=== PATIENT | female | born 1970 | race Caucasian/White ===

== ENCOUNTER → 2021-03-22 | Outpatient (CLI) | payer BC ==
[2021-03-22 19:17] LABS: Basophils # (A) 0.08 X 10*3/uL (0.00-0.10); Basophils % (A) 0.8 %; Eosinophils # (A) 0.22 X 10*3/uL (0.04-0.35); Eosinophils % (A) 2.3 %; HGB 13.5 g/dL (12.0-15.0); Lymphocytes # (A) 2.53 X 10*3/uL (0.90-5.00); Lymphocytes % (A) 26.1 %; MCH 29.2 pg (27.0-32.0); MCHC 30.7 g/dL (32.0-37.0); Mean Platelet Volume 9.9 fL (9.5-12.2); Monocytes # (A) 0.76 X 10*3/uL (0.20-1.00); Monocytes % (A) 7.8 %; Neutrophils # (A) 6.06 X 10*3/uL (1.80-7.70); Neutrophils % (A) 62.6 %; Platelet Count 320 X 10*3/uL (140-440); RBC 4.63 X 10*6/uL (4.10-5.20); RDW 13.9 % (11.5-14.5); WBC 9.69 X 10*3/uL (4.50-10.00)
[2021-03-22 19:19] LABS: Anion Gap 10.1 mmol/L (10.00-18.00); Carbon Dioxide 22.9 mmol/L (20.0-27.5)
== END | disposition home or self-care (01) ==
LOC: LABWHC1 10:23
PROVIDERS: ATTEND Orthopaedic Surgery
DX: Z01.812 Encounter for preprocedural laboratory examination (principal); G56.03 Carpal tunnel syndrome, bilateral upper limbs
CPT/HCPCS: 36415; 80051; 85025

== ENCOUNTER 2021-04-12 10:34 | Day surgery (SDC) | payer BC, OTHER ==
[2021-04-07 18:24] VITALS: BMI 19.5
--- NOTE | 2021-04-11 19:35 | HP ---
HISTORY AND PHYSICAL REASON FOR ADMISSION: Surgery scheduled for 04/12/2021 HISTORY OF PRESENT ILLNESS: Jocy White is a 51-year-old patient seen with symptomatic left carpal tunnel syndrome. We discussed options for treatment. She elected to proceed with decompression left median nerve. Consent obtained. PAST MEDICAL HISTORY: Noncontributory. PAST SURGICAL HISTORY: Noncontributory. DAILY MEDICATIONS: None. ALLERGIES: None reported. SOCIAL HISTORY: She does smoke cigarettes. PHYSICAL EXAMINATION: Physical evaluation of the left hand reveals positive carpal compression, carpal Tinel's causing numbness, tingling throughout the median nerve distribution. No tenderness along the A1 margot areas. There is good perfusion distally. Good radial pulse present. RADIOGRAPHS: Reveal some mild osteoarthritic changes of the left wrist. EMG revealed severe bilateral carpal tunnel syndrome. IMPRESSION: Left carpal tunnel syndrome. PLAN: Decompression left median nerve. Surgery scheduled 04/12/2021. MMODL / IJN: [id number] /
[~2021-04-12 10:34] MED LIST: DEXAMETHASONE SOD PHOSPHATE 4 MG/ML 1 ML VIAL IV ONE; HYDROmorphone 0.5 MG/0.5 ML SYRINGE IVP PRN; LACTATED RINGERS 1,000 ML IV SCH; LIDOCAINE 1% (10MG/ML) FOR IV START INTRADERMA PRN; MIDAZOLAM 2 MG/2 ML VIAL IV PRN; ONDANSETRON 4 MG/2 ML VIAL IVP ONE
[2021-04-12] MEDS ORDERED: BUPIVACAINE (PF) 0.25% 30 ML VIAL SQ ONE ×2 (11:59→12:18)
[2021-04-12] MEDS ORDERED: MIDAZOLAM 2 MG/2 ML VIAL ONE (12:05)
[2021-04-12] MEDS ORDERED: fentaNYL (PF) 50 MCG/ML 2 ML AMP ONE (12:05)
[2021-04-12] MEDS ORDERED: PROPOFOL 10 MG/ML 20 ML VIAL IV ONE (12:05)
--- NOTE | 2021-04-12 12:34 | P.OP ---
Date of Procedure: 04/12/21 Preoperative Diagnosis: Left carpal tunnel syndrome Postoperative Diagnosis: Left carpal tunnel syndrome Procedure(s) Performed: Decompression left median nerve Anesthesia: MAC, local Surgeon: Ruddy Tsang Estimated Blood Loss (ml): 0 Pathology: none sent Condition: stable Disposition: PACU Indications for Procedure: 51-year-old patient seen with symptomatic left carpal tunnel syndrome. After treatment options were discussed with her, she elected to proceed with decompr ession left median nerve. Operative Findings: See description of procedure Description of Procedure: Patient was taken to the operative suite. Patient received preoperative IV antibiotics. Well-padded tourniquet placed proximal left upper extremity. Left upper extremity prepped and draped in the normal sterile orthopedic fashion. The proposed incision site was infiltrated with 8 mL quarter percent plain Marcaine. When sufficient local analgesia was noted the extremity was elevated and tourniquet insufflated to 250. I made an incision beginning at the distal volar wrist crease extending distally approximately 3 cm in line with the fourth metacarpal sharply through skin. I dissected down through the palmar fascia to the transverse carpal ligament. I made a small incision through the central portion of transcarpal ligament. I now completed the release proximally and distally with blunt Metzenbaums. There was complete release of the transverse carpal ligament with good decompression of the nerve. There was good hemostasis. The wound was irrigated. Skin margins were proximal nylon suture. Applied sterile dressings followed by loose webril and Coban. The tourniquet was released with immediate capillary refill noted. The patient was now awakened and transferred to recovery in stable condition.
[2021-04-12 12:37] VITALS: TEMP 97.7
[2021-04-12 13:01] VITALS: RESP 16
[2021-04-12 13:24] VITALS: BP 126/66; PULSE 79
== END 2021-04-12 13:40 | disposition home or self-care (01) ==
LOC: OR 10:34
PROVIDERS: ATTEND Orthopaedic Surgery
DX: G56.02 Carpal tunnel syndrome, left upper limb (principal); F17.210 Nicotine dependence, cigarettes, uncomplicated; Z88.5 Allergy status to narcotic agent; K58.9 Irritable bowel syndrome, unspecified; Z90.710 Acquired absence of both cervix and uterus; Z97.2 Presence of dental prosthetic device (complete) (partial)
CPT/HCPCS: 64721; J2250; J1100; J2405; J0690; J3010; J2704

== ENCOUNTER → 2021-09-28 | Outpatient (CLI) | payer BC ==
--- NOTE | 2021-09-28 08:18 | CT ---
EXAMINATION TYPE: CT brain w con DATE OF EXAM: 09/28/2021 COMPARISON: None INDICATION: syncope, collapse DLP: 1153 mGycm, Automated exposure control for dose reduction was used. CONTRAST: 70 mL Isovue-300 CT of the brain is performed utilizing 3 mm thick sections through the posterior fossa and 3 mm thick sections through the remaining calvarium. Study is performed within 24 hours of arrival to the hosp [facility]. No abnormal hyperdensity is present to suggest an acute intracranial hemorrhage. No mass lesion is evident. No acute infarcts are evident. Extremely subtle subcortical hypodensity may be within the left back tender paper machine ior frontal lobe. Tiny subcortical infarct is not excluded. Consider additional workup with MRI. Ventricles and sulci are appropriate for the patient age. Paranasal sinuses and mastoid air cells within the [id number] are clear. No suspicious enhancement is evident. IMPRESSIONS: 1. Tiny area of subcortical hypodensity could be subacute or chronic ischemic change along other et iologies. Consider MRI brain for additional evaluation.
--- NOTE | 2021-09-28 17:42 | EEG ---
ELECTROENCEPHALOGRAM REPORT DATE OF SERVICE: 09/28/2021 PREAMBLE: This is a 51-year-old female who had a syncopal spell. The patient currently does not take any medications. EEG FINDINGS: This is a 21-channel digital EEG recorded with video component, utilizing 10/20 international system with referential and bipolar montages. The recording is technically slightly limited because of presence of a 60 hertz cycle interference during most of the study, for which filter had to be used. The background consists of moderately well-developed and -regulated mixed frequencies of low amplitude theta, intermixed with some fast frequency beta activity seen in bihemispheric region. The background is reactive to eye opening and closing. Photic driving response was not seen. Patient was noted to be in stage II sleep in later part of the study with presence of sleep spindles and vertex waves. No focal or generalized epileptiform activity was seen. EKG channel showed no arrhythmia. IMPRESSION: This is an abnormal EEG due to mild background slowing, with intermixed fast frequency activity. This is suggestive of generalized cerebral dysfunction as can be seen with encephalopathy or medication effect. No epileptiform activity was seen during this study. MMODL / IJN: [id number] /
== END | disposition home or self-care (01) ==
LOC: RADCTMAIN 07:36
PROVIDERS: ATTEND Family Medicine
DX: R55 Syncope and collapse (principal)
CPT/HCPCS: 95819; 70460; Q9967

== ENCOUNTER → 2021-11-01 | Day surgery (SDC) | payer BC ==
[2021-10-31 09:58] VITALS: BMI 18.8
[~2021-11-01] MED LIST changes: -DEXAMETHASONE SOD PHOSPHATE 4 MG/ML 1 ML VIAL IV ONE; -HYDROmorphone 0.5 MG/0.5 ML SYRINGE IVP PRN; +LACTATED RINGERS 1,000 ML IV ONE; +LIDOCAINE 2% INJ 20 MG/ML (2 ML VIAL) ONE; -MIDAZOLAM 2 MG/2 ML VIAL IV PRN; +MIDAZOLAM 2 MG/2 ML VIAL ONE; -ONDANSETRON 4 MG/2 ML VIAL IVP ONE; +PROPOFOL 10 MG/ML 20 ML VIAL IV ONE; +fentaNYL (PF) 50 MCG/ML 2 ML AMP ONE
--- NOTE | 2021-11-01 08:02 | P.GSHP ---
History of Present Illness H&P Date: 11/01/21 CHIEF COMPLAINT: Colon screen HISTORY OF PRESENT ILLNESS: The patient is a 51-year-old female who presents for colon screen. Lower endoscopy was offered for further evaluation and management. PAST MEDICAL HISTORY: Please see list. PAST SURGICAL HISTORY: Please see list. MEDICATIONS: Please see list. ALLERGIES: Please see list. SOCIAL HISTORY: No illicit drug use FAMILY HISTORY: No reports of Crohn disease or ulcerative colitis. REVIEW OF ORGAN SYSTEMS: CONSTITUTIONAL: No reports of fevers or chills. PHYSICAL EXAM: VITAL SIGNS: Stable GENERAL: Well-developed pleasant in no acute distress. HEENT: No scleral icterus. Extraocular movements grossly intact. Moist buccal mucosa. NECK: Supple without lymphadenopathy. CHEST: Unlabored respirations. Equal bilateral excursions. CARDIOVASCULAR: Regular rate and rhythm. Distal 2+ pulses. ABDOMEN: Soft, nontender, nondistended. MUSCULOSKELETAL: No clubbing, cyanosis, or edema. ASSESSMENT: 1. Colon screen. PLAN: 1. Recommend proceeding with a lower endoscopy Past Medical History Past Medical History: Hearing Disorder / Deafness, Musculoskeletal Disorder Additional Past Medical History / Comment(s): Recent unexplained weight loss. Recent episode of "blacking out, seeing table worker packager for it". IBS. Back pain. Sprained right shoulder. Osteoporsis. Bilateral hearing aid use. History of Any Multi-Drug Resistant Organisms: None Reported Past Surgical History: Section, Hysterectomy, Orthopedic Surgery Additional Past Surgical History / Comment(s): Left carpal tunnel surgery. Past Anesthesia/Blood Transfusion Reactions: No Reported Reaction Past Psychological History: Depression Smoking Status: Current every day smoker Past Alcohol Use History: None Reported Additional Past Alcohol Use History / Comment(s): Smokes 1 ppd, since age 25. Past Drug Use History: Marijuana Additional Drug Use History / Comment(s): Daily Marijuana use. Aware no use 24 hrs prior to procedure. - Past Family History Mother Family Medical History: Cancer Medications and Allergies Home Medications Medication Instructions Recorded Confirmed Type Naproxen Sodium [Aleve] 220 mg PO DAILY PRN 10/31/21 10/31/21 History Allergies Allergy/AdvReac Type Severity Reaction Status Date / Time codeine AdvReac Nausea & Verified 10/31/21 09:43 Vomiting
[2021-11-01 09:16] VITALS: TEMP 97.3
[2021-11-01 10:23] VITALS: RESP 20
--- NOTE | 2021-11-01 10:25 | P.PCN ---
Date of Procedure: 11/01/21 Description of Procedure: PREOPERATIVE DIAGNOSIS: Colonoscopy screening. POSTOPERATIVE DIAGNOSIS: Sigmoid diverticulosis with stricture OPERATION: Colonoscopy to the sigmoid colon SURGEON: Carline Williamson MD. ANESTHESIA: MAC. INDICATIONS: The patient is a 51-year-old female who presents for colonoscopy screening. Benefits and risks were described and informed consent was obtained. DESCRIPTION OF PROCEDURE: The patient had undergone Sutab prep. The patient had been brought into the operating room and laid in the left lateral decubitus position. After adequate intravenous sedation, the rectum was examined with 2% lidocaine jelly. External hemorrhoids were encountered. The rectal tone was within normal limits. No lesions were palpated in the rectal vault. An Olympus colonoscope was advanced to the sigmoid colon. The prep was excellent. Scattered diverticulosis with stricture at 40 cm from the anal verge was identified. The scope was exchanged to a pediatric colonoscope with persistent stricture found 40 cm from the anal verge. No colonic polyps were found to the extent of the sigmoid colon. No evidence of focal colitis was found to the extent of the sigmoid colon. Retroflexion of the scope demonstrated grade 2 internal hemorrhoids without active bleeding or inflammation. The colon was desufflated. The patient had tolerated the procedure well. Withdrawal time was over 6 minutes. FINDINGS: Aronchick preparation quality scale 1 (1-5) Pediatric colonoscope terminated at proximal sigmoid colon, 40 cm from the anal verge, sigmoidoscopy Internal hemorrhoids, grade 2 External prolapsed hemorrhoids, grade 2 No arteriovenous malformations at the sigmoid colon No adenomatous polyps at the sigmoid colon No focal colitis of the sigmoid colon RECOMMENDATIONS: Barium enema advised due to sigmoid stricture versus volvulus Plan - Discharge Summary Discharge Rx Participant: No New Discharge Prescriptions: Continue Naproxen Sodium [Aleve] 220 mg PO DAILY PRN PRN Reason: Severe Pain (Scale 7 To 10) Discharge Medication List Naproxen Sodium [Aleve] 220 mg PO DAILY PRN 10/31/21 [History] Follow up Appointment(s)/Referral(s): Carline Williamson MD [STAFF PHYSICIAN] - 11/14/21 Patient Instructions/Handouts: Diverticulosis Diet (GEN), Diverticulosis (DC), Colonoscopy (GEN), *Surgery [facility] - (Anesthesia) Endoscopy Discharge Instructions Activity/Diet/Wound Care/Special Instructions: Need barium enema Discharge Disposition: HOME SELF-CARE
[2021-11-01 11:06] VITALS: BP 133/70; PULSE 67
--- NOTE | 2021-11-01 14:03 | FL ---
EXAMINATION TYPE: FL barium enema DATE OF EXAM: 11/01/2021 COMPARISON: None HISTORY: Incomplete colonoscopy TECHNIQUE: A single contrast UGI study is performed. Partly prominent bowel gas remain post colonosc opy. FINDINGS: Contrast is refluxed into the colon to the cecum. Multiple rounded radiographs and fluoroscopic spot images were obtained. No persistent suspicious area of circumferential narrowing is evident. No filling defects are evident . No apple core lesions are identified. There is redundancy through the sigmoid colon. There is moderate residual post evacuation. Fluoroscopy time: 1 minute and 31 seconds Images: 24. IMPRESSIONS: 1. No suspicious changes single contrast lower GI study.
== END | disposition home or self-care (01) ==
LOC: ORWHC2ENDO 08:39
PROVIDERS: ATTEND Surgery Plastic and Reconstructive Surgery
DX: Z12.11 Encounter for screening for malignant neoplasm of colon (principal); K57.30 Diverticulosis of large intestine without perforation or abscess without bleeding; K64.9 Unspecified hemorrhoids; K64.8 Other hemorrhoids; R55 Syncope and collapse; F12.90 Cannabis use, unspecified, uncomplicated; F32.A Depression, unspecified; H91.93 Unspecified hearing loss, bilateral; R63.4 Abnormal weight loss; F17.210 Nicotine dependence, cigarettes, uncomplicated; M81.0 Age-related osteoporosis without current pathological fracture; K58.9 Irritable bowel syndrome, unspecified; M54.9 Dorsalgia, unspecified; Z79.899 Other long term (current) drug therapy; Z88.8 Allergy status to other drugs, medicaments and biological substances; Z90.89 Acquired absence of other organs; Z98.890 Other specified postprocedural states; Z80.9 Family history of malignant neoplasm, unspecified; Z98.891 History of uterine scar from previous surgery; Z68.1 Body mass index [BMI] 19.9 or less, adult
CPT/HCPCS: 74270; 45330; J2250; J3010; J2704; J2001

== ENCOUNTER 2021-11-20 09:17 | Day surgery (SDC) | payer BC ==
[2021-11-16 08:25] VITALS: BMI 19.0
--- NOTE | 2021-11-20 08:46 | P.GSHP ---
History of Present Illness H&P Date: 11/20/21 CHIEF COMPLAINT: GERD HISTORY OF PRESENT ILLNESS: The patient is a 51-year-old female who presents reports gastroesophageal reflux disease. Upper endoscopy was offered for further evaluation and management. PAST MEDICAL HISTORY: Please see list. PAST SURGICAL HISTORY: Please see list. MEDICATIONS: Please see list. ALLERGIES: Please see list. SOCIAL HISTORY: No illicit drug use FAMILY HISTORY: No reports of Crohn disease or ulcerative colitis. REVIEW OF ORGAN SYSTEMS: CONSTITUTIONAL: No reports of fevers or chills. GI: Denies any blood in stools or constipation. PHYSICAL EXAM: VITAL SIGNS: Stable GENERAL: Well-developed and pleasant in no acute distress. HEENT: No scleral icterus. Extraocular movements grossly intact. Moist buccal mucosa. NECK: Supple without lymphadenopathy. CHEST: Unlabored respirations. Equal bilateral excursions. CARDIOVASCULAR: Regular rate and rhythm. Distal 2+ pulses. ABDOMEN: Soft, nondistended. MUSCULOSKELETAL: No clubbing, cyanosis, or edema. ASSESSMENT: 1. Gastroesophageal reflux disease PLAN: 1. Recommend proceeding with an upper endoscopy Past Medical History Past Medical History: Hearing Disorder / Deafness, Musculoskeletal Disorder Additional Past Medical History / Comment(s): Recent unexplained weight loss. IBS. "Colon is twisted, may have GI bleed." "Episode of bloacking out, seeing redipper for it". Back pain. Sprained right shoulder. Bilateral hearing aid use. History of Any Multi-Drug Resistant Organisms: None Reported Past Surgical History: Section, Hysterectomy, Orthopedic Surgery Additional Past Surgical History / Comment(s): Left carpal tunnel surgery, colonoscopy. Past Anesthesia/Blood Transfusion Reactions: No Reported Reaction Past Psychological History: Depression Smoking Status: Current every day smoker Past Alcohol Use History: None Reported Additional Past Alcohol Use History / Comment(s): Smokes 1 ppd, since age 25. Past Drug Use History: None Reported Additional Drug Use History / Comment(s): Daily Marijuana use. Aware no use 24 hrs prior to procedure. - Past Family History Mother Family Medical History: Cancer Medications and Allergies Home Medications Medication Instructions Recorded Confirmed Type Sucralfate [Carafate] 1 gm PO TID 11/16/21 11/16/21 History Allergies Allergy/AdvReac Type Severity Reaction Status Date / Time codeine AdvReac Nausea & Verified 11/16/21 08:21 Vomiting
[~2021-11-20 09:17] MED LIST changes: -LACTATED RINGERS 1,000 ML IV ONE; -LACTATED RINGERS 1,000 ML IV SCH; -LIDOCAINE 2% INJ 20 MG/ML (2 ML VIAL) ONE; -MIDAZOLAM 2 MG/2 ML VIAL ONE; -PROPOFOL 10 MG/ML 20 ML VIAL IV ONE; -fentaNYL (PF) 50 MCG/ML 2 ML AMP ONE
[2021-11-20 09:43] VITALS: RESP 16; TEMP 97.2
[2021-11-20] MEDS: LACTATED RINGERS 1,000 ML IV SCH ×2 (09:50→10:08)
[2021-11-20] MEDS ORDERED: LIDOCAINE 2% INJ 20 MG/ML (2 ML VIAL) ONE (10:11)
[2021-11-20] MEDS ORDERED: PROPOFOL 10 MG/ML 20 ML VIAL IV ONE (10:11)
--- NOTE | 2021-11-20 10:43 | P.PCN ---
Date of Procedure: 11/20/21 Description of Procedure: PREOPERATIVE DIAGNOSIS: Gastrointestinal bleeding Epigastric abdominal pain Unintentional weight loss POSTOPERATIVE DIAGNOSIS: Gastritis. Diaphragmatic hiatal hernia OPERATION: Esophagogastroduodenoscopy with biopsies along antrum and duodenum SURGEON: Carline Williamson MD ANESTHESIA: MAC. INDICATIONS: The patient is a 51-year-old female who presents with gastrointestinal bleeding with dark stools and epigastric pain. Benefits and risks of the procedure were described. Informed consent was obtained. DESCRIPTION: The patient was brought into the endoscopy suite and laid in the left lateral decubitus position. An Olympus gastroscope was passed along the posterior oroph arynx down to the distal esophagus where the squamocolumnar junction was encountered at 38 cm from the incisors. The stomach was entered and no bile reflux was found. Additional findings are listed below. Biopsies with cold forceps were obtained of the antrum. The first through third portion of the duodenum was examined. Retroflexion of the scope confirmed Hill grade 2 lower esophageal valve. The squamocolumnar junction demonstrated LA grade B erosive esophagitis. The stomach was desufflated. The patient tolerated the procedure well. FINDINGS: Squamocolumnar junction 38 cm from the incisors. Diaphragmatic hiatus at 38 cm. Hill grade 2 lower esophageal valve. LA grade B erosive esophagitis. Mild duodenitis and biopsies obtained Chronic gastritis with biopsies obtained RECOMMENDATIONS: Upper endoscopy as needed. Plan - Discharge Summary Discharge Rx Participant: No New Discharge Prescriptions: Continue Sucralfate [Carafate] 1 gm PO TID Discharge Medication List Sucralfate [Carafate] 1 gm PO TID 11/16/21 [History] Follow up Appointment(s)/Referral(s): Carline Williamson MD [STAFF PHYSICIAN] - 12/05/21 Patient Instructions/Handouts: Gastritis (DC) Discharge Disposition: HOME SELF-CARE
[2021-11-20 10:45] VITALS: BP 130/66; PULSE 76
== END 2021-11-20 11:04 | disposition home or self-care (01) ==
LOC: ORWHC2ENDO 09:17
PROVIDERS: ATTEND Surgery Plastic and Reconstructive Surgery
DX: K29.50 Unspecified chronic gastritis without bleeding (principal); K22.10 Ulcer of esophagus without bleeding; K44.9 Diaphragmatic hernia without obstruction or gangrene; K21.9 Gastro-esophageal reflux disease without esophagitis; K29.80 Duodenitis without bleeding; F12.90 Cannabis use, unspecified, uncomplicated; M54.9 Dorsalgia, unspecified; F17.210 Nicotine dependence, cigarettes, uncomplicated; H91.90 Unspecified hearing loss, unspecified ear; Z98.890 Other specified postprocedural states; Z87.39 Personal history of other diseases of the musculoskeletal system and connective tissue; Z98.891 History of uterine scar from previous surgery; Z90.710 Acquired absence of both cervix and uterus; Z80.9 Family history of malignant neoplasm, unspecified; Z88.5 Allergy status to narcotic agent
CPT/HCPCS: 88305; 88342; 43239; J2704; J2001

== ENCOUNTER 2022-01-11 09:51 | Day surgery (SDC) | payer BC ==
--- NOTE | 2022-01-11 09:32 | P.GSHP ---
History of Present Illness H&P Date: 01/11/22 CHIEF COMPLAINT: GERD HISTORY OF PRESENT ILLNESS: The patient is a 51-year-old female who presents reports gastroesophageal reflux disease. Upper endoscopy was offered for further evaluation and management. PAST MEDICAL HISTORY: Please see list. PAST SURGICAL HISTORY: Please see list. MEDICATIONS: Please see list. ALLERGIES: Please see list. SOCIAL HISTORY: No illicit drug use FAMILY HISTORY: No reports of Crohn disease or ulcerative colitis. REVIEW OF ORGAN SYSTEMS: CONSTITUTIONAL: No reports of fevers or chills. GI: Denies any blood in stools or constipation. PHYSICAL EXAM: VITAL SIGNS: Stable GENERAL: Well-developed and pleasant in no acute distress. HEENT: No scleral icterus. Extraocular movements grossly intact. Moist buccal mucosa. NECK: Supple without lymphadenopathy. CHEST: Unlabored respirations. Equal bilateral excursions. CARDIOVASCULAR: Regular rate and rhythm. Distal 2+ pulses. ABDOMEN: Soft, nondistended. MUSCULOSKELETAL: No clubbing, cyanosis, or edema. ASSESSMENT: 1. Gastroesophageal reflux disease PLAN: 1. Recommend proceeding with an upper endoscopy Past Medical History Past Medical History: Hearing Disorder / Deafness, Musculoskeletal Disorder Additional Past Medical History / Comment(s): IBS. "Colon is twisted, may have GI bleed." "Episode of blacking out, seeing wood lather for it". Back pain. Sprained right shoulder. Bilateral hearing aid use. History of Any Multi-Drug Resistant Organisms: None Reported Past Surgical History: Section, Hysterectomy, Orthopedic Surgery Additional Past Surgical History / Comment(s): [place] carpal tunnel surgery, colonoscopy. Past Anesthesia/Blood Transfusion Reactions: No Reported Reaction Smoking Status: Current every day smoker - Past Family History Mother Family Medical History: Cancer Medications and Allergies Home Medications Medication Instructions Recorded Confirmed Type Sucralfate [Carafate] 1 gm PO TID 11/16/21 01/09/22 History Amoxicillin 1,000 mg PO Q12HR #56 cap 11/23/21 01/09/22 Rx Clarithromycin [Biaxin] 500 mg PO Q12HR #28 tablet 11/23/21 01/09/22 Rx Allergies Allergy/AdvReac Type Severity Reaction Status Date / Time codeine AdvReac Nausea & Verified 01/09/22 09:11 Vomiting
[2022-01-11] MEDS: LACTATED RINGERS 1,000 ML IV SCH ×2 (10:03→11:09)
[2022-01-11 10:12] VITALS: TEMP 97.1
[2022-01-11] MEDS ORDERED: GLYCOPYRROLATE 0.2 MG/ML 2 ML VIAL ONE (11:11)
[2022-01-11] MEDS ORDERED: PROPOFOL 10 MG/ML 20 ML VIAL IV ONE (11:11)
[2022-01-11] MEDS ORDERED: LIDOCAINE 2% INJ 20 MG/ML (2 ML VIAL) ONE (11:11)
--- NOTE | 2022-01-11 11:23 | P.PCN ---
Date of Procedure: 01/11/22 Description of Procedure: PREOPERATIVE DIAGNOSIS: Gastroesophageal reflux disease. H. pylori gastritis POSTOPERATIVE DIAGNOSIS: Gastroesophageal reflux disease. Gastritis. OPERATION: Esophagogastroduodenoscopy with biopsies along antrum. SURGEON: Carline Williamson MD ANESTHESIA: MAC. INDICATIONS: The patient is a 51-year-old female who presents with Helicobacter gastritis and reflux disease. Benefits and risks of the procedure were described. Informed consent was obtained. DESCRIPTION: The patient was brought into the endoscopy suite and laid in the left lateral decubitus position. An Olympus gastroscope was passed along the posterior oropharynx down to the distal esophagus where the squamocolumnar junction was encountered at 38 cm from the incisors. The stomach was entered and no bile reflux was found. Additional findings are listed below. Biopsies with cold forceps were obtained of the antrum. The first through third portion of the duodenum was examined. Retroflexion of the scope confirmed Hill grade 2 lower esophageal valve. The squamocolumnar junction demonstrated LA grade A erosive esophagitis. The stomach was desufflated. The patient tolerated the procedure well. FINDINGS: Squamocolumnar junction 38 cm from the incisors. Diaphragmatic hiatus at 38 cm. Hill grade 2 lower esophageal valve. LA grade A erosive esophagitis. No active duodenitis. Chronic gastritis RECOMMENDATIONS: Upper endoscopy as needed. Plan - Discharge Summary Discharge Rx Participant: No New Discharge Prescriptions: Continue Amoxicillin 1,000 mg PO Q12HR #56 cap Clarithromycin [Biaxin] 500 mg PO Q12HR #28 tablet Sucralfate [Carafate] 1 gm PO TID Discharge Medication List Sucralfate [Carafate] 1 gm PO TID 11/16/21 [History] Amoxicillin 1,000 mg PO Q12HR #56 cap 11/23/21 [Rx] Clarithromycin [Biaxin] 500 mg PO Q12HR #28 tablet 11/23/21 [Rx] Follow up Appointment(s)/Referral(s): Carline Williamson MD [STAFF PHYSICIAN] - As Needed Patient Instructions/Handouts: Helicobacter Pylori (GEN) Discharge Disposition: HOME SELF-CARE
[2022-01-11 11:43] VITALS: BP 111/67; PULSE 81; RESP 16
== END 2022-01-11 12:19 | disposition home or self-care (01) ==
LOC: ORWHC2ENDO 09:51
PROVIDERS: ATTEND Surgery Plastic and Reconstructive Surgery
DX: K29.50 Unspecified chronic gastritis without bleeding (principal); K21.9 Gastro-esophageal reflux disease without esophagitis; F17.200 Nicotine dependence, unspecified, uncomplicated; Z79.899 Other long term (current) drug therapy; Z80.8 Family history of malignant neoplasm of other organs or systems
CPT/HCPCS: 43239; J2704; J2001; 88305; 88342